=== PATIENT | male | born 1945 | race Caucasian/White ===

== ENCOUNTER 2017-02-05 08:35 | Day surgery (SDC) | payer BC ==
--- NOTE | ~2017-02-05 | EGD ---
EGD REPORT [facility] [address] [place]. [address] NAME: CHUY YAN : [birth year] STATUS : REG [facility]#: [id number] AGE: 71 ADM/REG DATE : 02/05/17 MR#: [id number] REPORT SERV DATE: 02/05/17 DICTATED BY: KHAI SUNG DATE: 02/05/17 REPORT STATUS : Draft TRANSCRIBED BY: [employer] DATE: 02/05/17 [facility] Patient Name: Chuy Yan Date of : 1945 Attending MD: KHAI SUNG MD Procedure Date No Time: 02/05/2017 Procedure: Colonoscopy Indications: High risk colon cancer surveillance: Personal history of colonic polyps Referring MD: LAY YBARRA Medicines: as per anesthesia Complications: No immediate complications. Procedure: Pre-Anesthesia Assessment: - ASA Grade Assessment: II - A patient with mild systemic disease. After I obtained informed consent, the scope was passed under direct vision. Throughout the procedure, the patient's blood pressure, pulse, and oxygen saturations were monitored continuously. The PCF [id number] was introduced through the anus and advanced to the cecum, identified by appendiceal orifice and ileocecal valve. The colonoscopy was performed without difficulty. The patient tolerated the procedure. The quality of the bowel preparation was adequate to identify polyps. Findings: The perianal and digital rectal examinations were normal. Many small and large-mouthed diverticula were found in the sigmoid colon and in the descending colon. Internal hemorrhoids were found during endoscopy and were mild. Impression: - Diverticulosis in the sigmoid colon and in the descending colon. - Internal hemorrhoids. Recommendation: - Repeat colonoscopy in 5 years for surveillance. Procedure Code(s): --- Professional --- 54887, Colonoscopy, flexible, proximal to splenic flexure; diagnostic, with or without collection of specimen(s) by brushing or washing, with or without colon decompression (separate procedure) Diagnosis Code(s): --- Professional --- K64.8, Other hemorrhoids EGD REPORT [facility] [address] [facility] [place] [address] NAME: CHUY YAN : [birth year] STATUS : REG [facility]#: [id number] AGE: 71 ADM/REG DATE : 02/05/17 MR#: [id number] REPORT SERV DATE: 02/05/17 DICTATED BY: KHAI SUNG. DATE: 02/05/17 REPORT STATUS : Draft TRANSCRIBED BY: [employer] DATE: 02/05/17 K57.30, Diverticulosis of large intestine without perforation or abscess without bleeding Z86.010, Personal history of colonic polyps CPT copyright 2013 [employer] [employer]. All rights reserved. 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 KHAI SUNG MD 02/05/2017 11:38 AM This report has been signed electronically. Number of Addenda: 0 Note Initiated On: 02/05/2017 11:07 AM Scope Withdrawal Time 0 hours 8 minutes 10 seconds [id number] [id number] [id number]
[~2017-02-05 08:35] MED LIST: ALLERGY RELIEF PO; FISH OIL1200 MG PO; FLAXSEED OIL1000 MG PO; MULTIPLE VIT PO; NEUR600 PO; NIACIN 500 PO; POTASSIUM CITRATE PO; PRILOSEC40 MG PO; PROBIOTIC; TIMOLOL MAL0.5 % OPH; VITAMIN B COMPLEX; XALAT OPH
== END 2017-02-05 23:59 | disposition home health service (06) ==
LOC: DMU 08:35
PROVIDERS: Internal Medicine Gastroenterology
PROC: 0DJD8ZZ Inspection of Lower Intestinal Tract, Via Natural or Artificial Opening Endoscopic (ICD-10-PCS; principal; 2017-02-05 10:00)
DX: Z12.11 Encounter for screening for malignant neoplasm of colon (principal); K57.30 Diverticulosis of large intestine without perforation or abscess without bleeding; K64.8 Other hemorrhoids; K21.9 Gastro-esophageal reflux disease without esophagitis; M19.90 Unspecified osteoarthritis, unspecified site; E78.00 Pure hypercholesterolemia, unspecified; Z86.010 Personal history of colon polyps; Z98.890 Other specified postprocedural states; Z79.899 Other long term (current) drug therapy; Z87.891 Personal history of nicotine dependence; Z90.49 Acquired absence of other specified parts of digestive tract